=== PATIENT | male | born 1970 | race Caucasian/White ===

== ENCOUNTER 2021-06-13 16:14 | Inpatient (IN) ==
--- NOTE | 2021-06-13 16:46 | Emergency Department Note ---
Impression & Plan Chest pain ADMIT ED Provider Note HPI: The patient is a 50-year-old male with history of hyperlipidemia, presents the emergency department the chief complaint of transient episodes of chest discomfort. Patient's at the bedside is assisting with history, she states that the patient has had episodes of chest discomfort for some time now, this has been attributed to panic attacks secondary to his history of PTSD. Patient did recently have a stress test within the past several weeks through [employer] that she tells me was abnormal, patient is being arranged for an outpatient/diagnostic cardiac catheterization which is to happen on June 22 however he had another episode of chest pain today and was therefore advised by his outpatient providers to come to the emergency room for further evaluation. On arrival here to the ED the patient's EKG does not show any evidence of an ST elevation FL, he is otherwise hemodynamically stable on my initial assessment, he is in no acute distress and states that his episode of chest pain is now resolved. ROS: -Cardio: Chest pain *10 point review systems was conducted and is otherwise negative unless stated above *Outpatient medications and allergy history reviewed PE: General: Alert, NAD HEENT: Normocephalic, atraumatic Eyes: Extraocular eye movement is intact, no scleral erythema Pulmonary: Clear to auscultation bilaterally, no wheezing Cardio: Regular rate and rhythm GI: Abdomen is soft, nontender : No suprapubic tenderness MSK: No evidence of trauma or malformation of the extremities, no edema Skin: No evidence of rash Neuro: Alert, no focal deficits Psychiatric: Cooperative monitor technician: - An order was placed for continuous cardiac monitoring - Patient was noted to be in sinus rhythm with rate of 96 EKG: Rate: 90 Rhythm: Sinus rhythm Intervals: Within normal limits ST changes: No ST elevation Time: 1621 Medical Decision Making: Patient presented to the emergency department with a chief complaint of transient episode of chest discomfort, this is in the setting of a recently abnormal stress test that was performed through the [employer] acc ording to the patient's at the bedside. He is to have a diagnostic catheterization that was scheduled for June 22. On arrival here to the ED the patient states he is chest pain-free, IV was established, lab work obtained, patient was placed on the manager cardiac. Lab work shows a normal high-sensitivity troponin, chest x-ray does not show any evidence of any acute disease. EKG was reviewed by myself, I do not see any evidence of any acute ischemic changes. I was able to review the records from the patient's stress test that was performed on June 04, 2021 at [facility], there is mention that there was abnormal pharmacologic stress test demonstrating a small area of left circumflex territory ischemia. Given this, and his episode of chest pain today, I do think the patient should be admitted he was given aspirin prior to admission[facility] and the patient was admitted in stable condition. Diagnosis: 1. Chest pain, transient 2. Recent abnormal pharmacologic stress testing Disposition: Admission Keanu Andersen DO Emergency Medicine Past Med/Surg History Social History Smoking Status: Never smoker Feels Safe at Home: Yes Allergies Allergies Allergy/AdvReac Type Severity Reaction Status Date / Time No Known Allergies Allergy Verified 06/13/21 17:22 Home Meds Home Medications Medication Instructions Recorded Confirmed aspirin 81 mg tablet,delayed 81 mg PO DAILY 06/13/21 06/13/21 release cholecalciferol (vitamin D3) 25 25 mcg PO DAILY 06/13/21 06/13/21 mcg (1,000 unit) capsule (Vitamin D3) cyclobenzaprine 10 mg tablet 10 mg PO TID PRN 06/13/21 06/13/21 ibuprofen 200 mg tablet 400 - 800 mg PO DIRECTED PRN 06/13/21 06/13/21 multivitamin 1 tab PO DAILY 06/13/21 06/13/21 rosuvastatin 20 mg tablet 20 mg PO DAILY 06/13/21 06/13/21 Results & Data (ED) Vital Signs Vital Signs - 24 hr 06/13/21 16:14 06/13/21 16:16 Temperature 36.6 C Temperature Source Skin Pulse Rate 89 Pulse Rate [Apical] 88 Respiratory Rate 17 18 Blood Pressure 131/86 Blood Pressure [Right Arm] 132/84 Blood Pressure Mean 101 Blood Pressure Mean [Right Arm] 100 Pulse Oximetry 98 96 Oxygen Delivery Method Room Air Sepsis Recent Fever Within 48 Hours No Sepsis New/Unexplained Change in Mental Status No Sepsis Action Taken by Nursing No Action Required Laboratory Data Result diagrams: 06/13/21 16:29 06/13/21 16:29 Lab Results 06/13/21 06/13/21 Range/Units 16:29 16:29 WBC 8.10 (4.8-10.8) K/uL RBC 4.49 L (4.7-6.1) M/uL Hgb 14.8 (14.0-18.0) g/dL Hct 42.7 (42-52) % MCV 95.1 (80-100) fL MCH 33.0 (25-34) pg MCHC 34.7 (32-36) g/dL RDW Std Deviation 42.4 (36.4-46.3) fL RDW Coeff of Alexis 12.3 (11.5-14.5) % Plt Count 305 (130-400) K/uL MPV 9.3 (7.4-10.4) fL Immature Gran % (Auto) 0.2 % Neut % (Auto) 59.7 % Lymph % (Auto) 28.5 % [place] % (Auto) 8.6 % Eos % (Auto) 2.5 % Baso % (Auto) 0.5 % Neut # (Auto) 4.83 (1.4-6.5) K/uL Lymph # (Auto) 2.31 (1.2-3.4) K/uL [place] # (Auto) 0.70 H (0.11-0.59) K/uL Eos # (Auto) 0.20 (0-0.5) K/uL Baso # (Auto) 0.04 (0-0.2) K/uL Immature Gran # (Auto) 0.02 (0.00-0.02) K/uL Sodium 137 (136-145) mmol/L Potassium 4.1 (3.5-5.1) mmol/L Chloride 105 (98-107) mmol/L Carbon Dioxide 24 (21-32) mmol/L Anion Gap 8 (3-11) BUN 19 (6-23) mg/dl Creatinine 1.02 (0.6-1.4) mg/dl Est Cr Clr Drug Dosing 119.8 ml/min Est GFR ( Amer) 98.9 ml/min Est GFR (Non-Af Amer) 85.3 ml/min BUN/Creatinine Ratio 18.6 (10-20) Glucose 81 (70-99(Fasting)) mg/dl Calcium 9.3 (8.5-10.1) mg/dl Total Bilirubin 0.7 (0.2-1.0) mg/dl AST 17 (13-39) U/L ALT 21 (7-52) U/L Alkaline Phosphatase 70 (34-104) U/L Troponin I High Sens 6.1 (0-20) pg/ml Total Protein 7.5 (6.0-8.3) gm/dl Albumin 4.3 (3.4-5.0) gm/dl Globulin 3.2 (2.5-4.0) gm/dl Albumin/Globulin Ratio 1.3 (0.9-2) Lipase 24 (11-82) U/L Administered Medications Discontinued Medications Aspirin (Aspirin Chew 324 Mg) 324 mg PO NOW STA Stop: 06/13/21 17:59 Last Admin: 06/13/21 18:05 Dose: 243 mg Documented by: [id number] Imaging Data Radiologist's Impression: Chest X-Ray 06/13/21 16:37 SINGLE VIEW CHEST CLINICAL HISTORY: Atypical chest pain. FINDINGS: An AP, portable, upright chest radiograph is obtained. No prior studies are available for comparison at the time of dictation. The examination is degraded by portable technique and apical lordotic positioning. The heart is enlarged. The pulmonary vasculature is noncongested. Scarring/atelectasis is noted at the lung bases. The lungs and pleural spaces are otherwise clear. No pneumothorax is seen. The bony thorax is grossly intact. IMPRESSION: Mild cardiomegaly with no acute cardiopulmonary abnormality. ACT 112: Negative or not required by law. Electronically signed by: Nash Simpson M.D. 06/13/2021 5:42 PM Discharge Plan Visit Data Chief Complaint: Chest Pain Stated Complaint: CHEST PAINS, SENT OVER BY ED Provider: Keanu Andersen Discharge Problem: Chest pain Forms Stand Alone Forms: My [facility] Prescriptions Prescriptions: No Action multivitamin Tablet 1 tab PO DAILY RF: 0 cyclobenzaprine 10 mg Tablet 10 mg PO TID PRN (Reason: MUSCLE SPASMS) RF: 0 aspirin 81 mg Tablet,Delayed Release (Dr/Ec) 81 mg PO DAILY RF: 0 ibuprofen 200 mg Tablet 400 - 800 mg PO DIRECTED PRN (Reason: Pain) RF: 0 cholecalciferol (vitamin D3) [Vitamin D3] 25 mcg (1,000 unit) Capsule 25 mcg PO DAILY RF: 0 rosuvastatin 20 mg Tablet 20 mg PO DAILY RF: 0 Referrals Referrals: Kervin Huggins MD [Primary Care Provider] - Discharge Problem: Chest pain Qualifiers: Chest pain type: unspecified Qualified Code(s): R07.9 - Chest pain, unspecified
[2021-06-13 16:58] LABS: Basophils # (auto) 0.04 K/uL (0-0.2); Basophils % (auto) 0.5 %; Eosinophils % (auto) 2.5 %; Hematocrit (blood only) 42.7 % (42-52); Hemoglobin 14.8 g/dL (14.0-18.0); Immature Granulocytes # (auto) 0.02 K/uL (0.00-0.02); Immature Granulocytes % (auto) 0.2 %; Lymphocytes # (auto) 2.31 K/uL (1.2-3.4); Lymphocytes % (auto) 28.5 %; Mean Corpuscular Hgb Conc 34.7 g/dL (32-36); Mean Corpuscular Volume 95.1 fL (80-100); Mean Platelet Volume 9.3 fL (7.4-10.4); Monocytes % (auto) 8.6 %; Neutrophils # (auto) 4.83 K/uL (1.4-6.5); Neutrophils % (auto) 59.7 %; Platelet Count 305 K/uL (130-400); RDW Coefficient of Variation 12.3 % (11.5-14.5); RDW Standard Deviation 42.4 fL (36.4-46.3); Red Blood Count 4.49 M/uL (4.7-6.1)
[2021-06-13 17:16] LABS: Albumin Globulin Ratio 1.3 (0.9-2); Albumin Level 4.3 gm/dl (3.4-5.0); BUN Creatinine Ratio 18.6 (10-20); Bilirubin,Total 0.7 mg/dl (0.2-1.0); Calcium 9.3 mg/dl (8.5-10.1); Creatinine Clr Calc Pharmacy 119.8 ml/min; Est GFR (African American) 98.9 ml/min; Est GFR (Non-African American) 85.3 ml/min; Globulin 3.2 gm/dl (2.5-4.0); Potassium 4.1 mmol/L (3.5-5.1); Total Protein 7.5 gm/dl (6.0-8.3)
[2021-06-13 17:21] LABS: Troponin I High Sensitivity 6.1 pg/ml (0-20)
--- NOTE | 2021-06-13 17:43 | XRay Report ---
SINGLE VIEW CHEST CLINICAL HISTORY: Atypical chest pain. FINDINGS: An AP, portable, upright chest radiograph is obtained. No prior studies are available for c omparison at the time of dictation. The examination is degraded by portable technique and apical lord otic positioning. The heart is enlarged. The pulmonary vasculature is noncongested. Scarring/atelecta sis is noted at the lung bases. The lungs and pleural spaces are otherwise clear. No pneumothorax is seen. The bony thorax is grossly intact. IMPRESSION: Mild cardiomegaly with no acute cardiopulmonary abnormality. ACT 112: Negative or not required by law. Electronically signed by: Nash Simpson M.D. 06/13/2021 5:42 PM
[2021-06-13] MEDS ORDERED: ASPIRIN CHEW 324 MG PO STA (17:58)
[2021-06-13] MEDS ORDERED: CYCLOBENZAPRINE HCL 10 MG TAB PO PRN (18:51)
--- NOTE | 2021-06-13 19:06 | History & Physical Report ---
Date of Service June 13, 2021 Assessment & Plan (1) Chest pain: Plan: #. Chest pain Patient presented with chest pain at rest associated with diaphoresis/nausea today History of intermittent chest pain throughout this last year, history of PA at age 40 while in [place] Recent abnormal outpatient stress test, planned for heart cath on 22 June Chest pain-free at bedside exam, first set of troponin negative, trend troponin Admitting EKG with no acute ST-T changes. N.p.o. midnight, cardiology consult for possible procedure tomorrow. #. Alcohol abuse Patient drinks 6-8 beers daily, watch out for alcohol withdrawal, will hold on ordering AWSS protocol as of now No h/o withdrawal or seizures in the past per patient. DVT prophylaxis: Subcu heparin Full code Patient's Carrie [[phone]] would like an update and call prior to him having any cardiac procedure tomorrow. History of Present Illness Chief Complaint: Chest pain Primary Care Provider: Kervin Huggins MD 50-year-old male with PMH of PA at age 40 [per pt, while in [place]], TBI, PTSD, lumbar disc disease and with significant cardiac family history presented to our ED with complaint of chest pain at around 2:30 PM today while sitting at desk and typing, pressure-like sensation, 7-8/10 in intensity, radiating to left arm and neck, associated with diaphoresis and palpitation. Patient received full dose aspirin in the ED. At bedside exam patient is chest pain-free. Admitting EKG with no acute ST or T elevation, first troponin set was negative. Per patient, he has been having on and off chest pain since last 1 year which was initially thought to be due to his history of PTSD but [facility], his blood pressure went up very high and he had chest pain which prompted for stress test which was done on 06/04/2021 at [facility] and came back abnormal and hence was scheduled for cardiac cath on 22 June. But since he had chest pain today, he reached out to his PCP and was directed to the emergency for inpatient cardiac cath and further cardiology ev aluation. Patient denies any headache/dizziness/belly pain/acute changes in bowel or bladder habits/cough/sore throat/other review of symptoms. Per patient, no personal history of blood clot or family history of blood clot. Family history of breast cancer in mother and 2 PA in father in age 30s. Per patient, patient quit smoking 13 years ago, drinks 6-8 beers daily, does not use any recreational drugs. Full code Allergies Allergy/AdvReac Type Severity Reaction Status Date / Time No Known Allergies Allergy Verified 06/13/21 17:22 Home Medications Medication Instructions Recorded Confirmed Type aspirin 81 mg tablet,delayed 81 mg PO DAILY 06/13/21 06/13/21 History release cholecalciferol (vitamin D3) 25 25 mcg PO DAILY 06/13/21 06/13/21 History mcg (1,000 unit) capsule (Vitamin D3) cyclobenzaprine 10 mg tablet 10 mg PO TID PRN 06/13/21 06/13/21 History ibuprofen 200 mg tablet 400 - 800 mg PO DIRECTED PRN 06/13/21 06/13/21 History multivitamin 1 tab PO DAILY 06/13/21 06/13/21 History rosuvastatin 20 mg tablet 20 mg PO DAILY 06/13/21 06/13/21 History Past Med/Surg History Social History Smoking Status: Never smoker Feels Safe at Home: Yes Review of Systems Review of Systems: Negative otherwise mentioned in the H&P. Physical Exam Physical Exam: GENERAL: Alert and oriented x3. NAD, on RA. HEENT: No pallor, no icterus. Pupils equal, round and reactive to light. Oral mucosa moist. NECK: No JVD, no neck masses. HEART: S1 and S2 heard. Regular rate and rhythm. No murmur, no gallop. RESPIRATORY SYSTEM: Normal AP diameter. No accessory muscle use. No wheezing, no crackles. ABDOMEN: Soft, bowel sounds present, nontender, no distention. CENTRAL NERVOUS SYSTEM: No facial droop. Speech is clear. Obeys simple commands. Moves extremities. EXTREMITIES: No edema, no erythema seen. Results & Data Results & Data ([facility]) Vital Signs (Past 12 Hours) Vital Signs Temp Pulse Pulse Resp BP BP Pulse Ox 06/13/21 18:14 77 21 132/81 100 06/13/21 16:16 36.6 C 89 18 131/86 96 06/13/21 16:14 88 17 132/84 98 Code Status & VTE Plan VTE Prophylaxis Plan VTE Prophylaxis will be ordered: Yes (1) Chest pain Chest pain type: unspecified Qualified Code(s): R07.9 - Chest pain, unspecified
[2021-06-13] MEDS: HEPARIN SOD 5,000 UNIT/0.5 ML VIAL SQ SCH (22:10)
[2021-06-14 06:45] LABS: Hematocrit (blood only) 40.4 % (42-52); Hemoglobin 14.1 g/dL (14.0-18.0); Mean Corpuscular Hemoglobin 33.3 pg (25-34); Mean Corpuscular Hgb Conc 34.9 g/dL (32-36); Mean Corpuscular Volume 95.5 fL (80-100); Mean Platelet Volume 9.2 fL (7.4-10.4); Platelet Count 274 K/uL (130-400); RDW Coefficient of Variation 12.3 % (11.5-14.5); RDW Standard Deviation 42.8 fL (36.4-46.3); Red Blood Count 4.23 M/uL (4.7-6.1); White Blood Count 6.15 K/uL (4.8-10.8)
[2021-06-14 07:10] LABS: BUN Creatinine Ratio 18.4 (10-20); Calcium 8.7 mg/dl (8.5-10.1); Creatinine Clr Calc Pharmacy 124.4 ml/min; Est GFR (African American) 103.8 ml/min; Est GFR (Non-African American) 89.5 ml/min; Phosphorus 3.2 mg/dl (2.5-4.9); Potassium 4.1 mmol/L (3.5-5.1)
[2021-06-14] MEDS: ASPIRIN 81 MG ECTAB PO SCH (08:45)
[2021-06-14] MEDS: ROSUVASTATIN CALCIUM 20 MG TAB PO SCH (08:45)
[2021-06-14] MEDS: HEPARIN SOD 5,000 UNIT/0.5 ML VIAL SQ SCH ×2 (08:45→20:36)
--- NOTE | 2021-06-14 12:15 | Electrocardiogram Report ---
Test Reason : Blood Pressure : / mmHG Vent. Rate : 090 BPM Atrial Rate : 090 BPM P-R Int : 160 ms QRS Dur : 090 ms QT Int : 362 ms P-R-T Axes : 023 010 030 degrees QTc Int : 442 ms Sinus rhythm with occasional Premature ventricular complexes Otherwise normal ECG No previous ECGs available Confirmed by Woodrow Wilks ([id number]) on 06/14/2021 12:15:01 PM Referred By: Kervin Huggins Confirmed By:Woodrow Wilks
--- NOTE | 2021-06-14 12:52 | Cardiology Consultation ---
Date of Consultation June 14, 2021 Assessment & Plan (1) Chest pain: (2) Abnormal nuclear stress test: (3) Dyslipidemia: (4) Former tobacco use: 50 male presents with recurrent chest discomfort atypical for angina. Recent Lexiscan nuclear stress test suggesting circumflex territory ischemia. No evidence of acute coronary syndrome on admission. He is scheduled for outpatient cardiac catheterization on June 22. With recurrent/persistent symptoms, recommend left heart catheterization with coronary angiography. Risk, benefits, alternatives to procedure discussed. Patient agreeable to proceed. He will remain n.p.o. at this time. All questions answered to patient's satisfaction. History of Present Illness Reason for Consultation: chest pain, abnormal stress Requesting Physician: Dr. Goodwin Attending Physician: Juanjose Goodwin MD History of Present Illness 50 old patient presented to the emergency department with chest discomfort. Evaluated by primary care 06/13/2021. Complaining of intermittent sharp chest discomfort which occurs both at rest and occasionally with exertion. The discomfort can last several minutes. There is no associated shortness of breath, lightheadedness, or dizziness. Time that discomfort shoots straight through to his back as well as radiates down his left arm. Recently, a Lexiscan nuclear stress test was performed for further evaluation. There is evidence of a small, mild base lateral reversible defect suggestive of ischemia. Pain-free since admission. Cardiac enzymes undetectable. No ischemic ECG changes. Currently resting comfortably. Denies orthopnea, PND, or lower extremity edema. Reports history of "heart attack" while in the in [place]. A cardiac catheterization was not performed. Denies any history of coronary intervention or bypass surgery. Risk factors include dyslipidemia. Reports a family history of coronary does involving his father before age 40, however, his father still living today in his 70s. Allergies Allergy/AdvReac Type Severity Reaction Status Date / Time No Known Allergies Allergy Verified 06/13/21 17:22 Home Medications Medication Instructions Recorded Confirmed Type aspirin 81 mg tablet,delayed 81 mg PO DAILY 06/13/21 06/13/21 History release cholecalciferol (vitamin D3) 25 25 mcg PO DAILY 06/13/21 06/13/21 History mcg (1,000 unit) capsule (Vitamin D3) cyclobenzaprine 10 mg tablet 10 mg PO TID PRN 06/13/21 06/13/21 History ibuprofen 200 mg tablet 400 - 800 mg PO DIRECTED PRN 06/13/21 06/13/21 History multivitamin 1 tab PO DAILY 06/13/21 06/13/21 History rosuvastatin 20 mg tablet 20 mg PO DAILY 06/13/21 06/13/21 History Patient History Social History Smoking Status: Former smoker Second Hand Exposure: No; Do You Dip or Chew Tobacco: No; Hx Alcohol Use: Yes Alcohol type: beer Hx Substance Use: No Preferred Language: Uzbek Communication Ability: Effective Network Support Engineer Required: No Beliefs That Will Affect Care: None Current Living Situation: Significant Other Current Living Situation Comment: Girlfriend and her son Other Information That Helps Us Care for You: No Feels Safe at Home: Yes Safety Concerns: Feels Safe At This Time Assistive Devices: None Review of Systems Review of Systems: All systems reviewed & are unremarkable except as noted in Subjective Physical Exam Constitutional: well developed and well nourished; no acute distress and not ill appearing Respiratory: normal respiratory effort; no respiratory distress, no labored breathing and no retractions Auscultation: lungs clear to auscultation bilaterally; breath sounds present, no crackles, no rales, no rhonchi and no wheezes Cardiovascular: Rate/Rhythm: regular rate and regular rhythm Heart Sounds: normal S1 and normal S2; no murmur Vessels: femoral pulses present and radial pulses present; no JVD and no carotid bruit Extremities: no edema Gastrointestinal (Abdomen): Inspection/Auscultation: abdomen normal to inspection and normal bowel sounds; abdomen not distended Percussion/Palpation: abdomen soft; abdomen nontender, no guarding and abdomen not rigid Neurologic: CN's II-XI intact bilaterally and moves all extremities; no focal motor deficits Motor/Sensory: no tremor Psychiatric: A+Ox3, euthymic affect Results & Data ([facility]) Vital Signs (Past 12 Hours) Vital Signs Temp Pulse Pulse Resp BP Pulse Ox 06/14/21 10:53 37.0 C 67 18 130/84 94 06/14/21 07:00 36.4 C L 87 61 18 144/81 H 94 06/14/21 03:30 36.5 C 70 20 116/63 96 06/14/21 01:00 87 (1) Chest pain Chest pain type: unspecified Qualified Code(s): R07.9 - Chest pain, unspecified
--- NOTE | 2021-06-14 14:24 | Electrocardiogram Report ---
Test Reason : Blood Pressure : / mmHG Vent. Rate : 070 BPM Atrial Rate : 070 BPM P-R Int : 202 ms QRS Dur : 092 ms QT Int : 422 ms P-R-T Axes : -06 014 015 degrees QTc Int : 455 ms Normal sinus rhythm Normal ECG When compared with ECG of 13-JUN-2021 16:21, (unconfirmed) Premature ventricular complexes are no longer Present Confirmed by Woodrow Wilks ([id number]) on 06/14/2021 2:24:24 PM Referred By: Kervin Huggins Confirmed By:Woodrow Wilks
--- NOTE | 2021-06-14 15:04 | Pre Anesthesia Assessment ---
Date of Service June 14, 2021 Pre Sedation Assessment Vital Signs Temp Pulse Pulse Pulse Resp BP BP 06/14/21 10:53 37.0 C 67 18 130/84 06/14/21 07:00 36.4 C L 87 61 18 144/81 H 06/14/21 03:30 36.5 C 70 20 116/63 06/14/21 01:00 87 06/13/21 22:22 36.6 C 89 20 138/87 06/13/21 22:16 85 06/13/21 22:11 36.6 C 89 20 138/87 06/13/21 18:14 77 21 132/81 06/13/21 16:16 36.6 C 89 18 131/86 06/13/21 16:14 88 17 132/84 Pulse Ox 06/14/21 10:53 94 06/14/21 07:00 94 06/14/21 03:30 96 06/14/21 01:00 06/13/21 22:22 94 06/13/21 22:16 06/13/21 22:11 94 06/13/21 18:14 100 06/13/21 16:16 96 06/13/21 16:14 98 Cardiovascular RRR, no murmur, no edema Respiratory normal respiratory effort, lungs clear to auscultation Pre-Sedation Airway Assessment Smoking Status: Former smoker Mallampati Class: II ASA: ASA3 NPO Status Date of Last Intake of Fluids: 06/13/21 Date of Last Intake of Solid Food: 06/13/21 Procedure Planning Contraindications for Sedation: none Current Medications Reviewed: Yes Notes The planned sedation has been discussed with the patient. Informed Consent was obtained. I have identified the patient, determined the appropriateness of sedation and have assessed the patient immediately prior to the procedure. All medicine(s) and interventions are by my order.
[2021-06-14] MEDS ORDERED: niCARdipine HCL INJ 2.5 MG/ML 10 ML AMP ONE (15:12)
[2021-06-14] MEDS ORDERED: MIDAZOLAM HCL 1 MG/ML 2ML VIAL ONE (15:12)
[2021-06-14] MEDS ORDERED: fentaNYL citrate 100 MCG/2 ML VIAL ONE (15:12)
[2021-06-14] MEDS ORDERED: HEPARIN (PORCINE) 1000 UNIT/ML 10 ML (CATH LAB USE ONLY) ONE (15:12)
[2021-06-14] MEDS ORDERED: NITROGLYCERIN/D5W 100MCG/ML 20ML SYR ONE (15:13)
[2021-06-14] MEDS ORDERED: LIDOCAINE 1% LOCAL 20 ML VIAL ONE (15:13)
--- NOTE | 2021-06-14 17:17 | Post Anesthesia Assessment ---
Date of Service June 14, 2021 Post Sedation Assessment Vital Signs Temp Pulse Pulse Pulse Resp BP Pulse Ox 06/14/21 10:53 37.0 C 67 18 130/84 94 06/14/21 07:00 36.4 C L 87 61 18 144/81 H 94 06/14/21 03:30 36.5 C 70 20 116/63 96 06/14/21 01:00 87 06/13/21 22:22 36.6 C 89 20 138/87 94 06/13/21 22:16 85 06/13/21 22:11 36.6 C 89 20 138/87 94 06/13/21 18:14 77 21 132/81 100 Recovery Score Activity: Moves 4 extremities Respiration: Deep Breath/Cough Circulation: +/-20% PreAnes Value Consciousness: Fully Awake Oxygen Saturation: > 92% On Room Air Discharge Sedation Level of Care: Phase I Post Sedation Plan On clinical assessment, the patient appears to have tolerated the sedation without complications. Patient is recovering as anticipated. Patient will continue to be monitored by nursing and may be discharged when sedation discharge criteria are met per below protocol. Upon Completions of procedure up to 15 minutes continue every 5 minute vital signs and the P.A.R. score; then discharge to a Phase I or Fast Track to Phase II per the following guidelines: * Discharge Patient to appropriate Phase II area if PAR is 8 or greater or re turn to pre- procedure baseline. The post - procedure orders will be as directed. * If PAR score is less than 8 or not return to pre-procedure baseline then patient will follow Phase I monitoring till PAR is reached for Phase II. The Phase I may be done in procedure room or may call to secure a Phase I area. * If naloxone or flumazenil are used for reversal, hold in Phase I for continued monitoring from when last reversal dose was given for a minimum of 60 minutes or longer pending the nurse and/or physician discretion of patient condition before discharge to Phase II. Please call the Sedation Physician to re-evaluate and complete post-note for discharge to Phase II area. Do NOT discharge from procedure sedation or Phase 1 until post- sedation evaluation note is complete by procedure /sedation MD Sedation Discharge Instructions to be given to the patient at discharge to home.
--- NOTE | 2021-06-14 17:20 | Cardiac Catheterization ---
Cardiac Cath Procedure Full Procedure Date June 14, 2021 Pre-Procedure Diagnosis Pre-Procedure Diagnosis: Positive Stress Test AUC Score AUC Score: 7 Post-Procedure Diagnosis Post-Procedure Diagnosis: Normal Coronary Arteries (Right coronary artery not visualized) Procedure(s) Performed Procedure(s) Performed: Left Heart Cath, LV Angiography and Aortography Coroner Willy Davila DO Kiln Hand(s) Bobby RTR Estimated Blood Loss Estimated Blood Loss: 10cc Medication(s) Medication(s): Fentanyl, Heparin, Lidocaine 1%, Nicardipine, Nitroglycerin and Versed Summary of Findings Normal left-sided coronary anatomy. The right coronary artery was not visualized. VIDALES and LEBANESE projection aortography did not reveal the origin of the right coronary artery. Hemodynamics Rest Ao:: 105/78/89 Final Ao: 121/77/97 LV: 118/3/10 Recommendations Recommendations: Medical Therapy and/or Counseling and Management Recommendatons (Cardiac CT for evaluation of the right coronary artery.) Specimens Specimens: None Radiation Exposure (mGy) 2891 Contrast (mls) 200cc Fluids (cc crystalloids) Fluids (cc crystalloids): 135 Nss Drains Drains: N/A Anesthesia Moderate sedation. Start 1553. [id number]. Sedation monitor: Paco GARDNER Procedural Complication(s) None I attest to the content of the Intraoperative Record and any orders documented therein. Any exceptions are noted below. ACC Data: Landscape Specialist Cardiac Status Clinical evaluation leading to the procedure Abnormal Lexiscan nuclear stress test suggesting lateral ischemia. CAD Presenation: Positive Stress Test Coronary Anatomy Dominant: Right (Likely right dominant, however, the right coronary artery is not visualized.) Left Main (% Stenosis): Normal LAD (% Stenosis): Normal (Type II vessel which reaches the left ventricular apex.) D1 (% Stenosis): Normal D2 (% Stenosis): Normal D3 (% Stenosis): Normal Circumflex (% Stenosis): Normal OM1 (% Stenosis): Normal L PL1 (% Stenosis): Normal Diagnostic Physicians Name: Willy Davila DO Closure Device Percutaneous Entry Location: Radial Closure Device: Radial Band Recommendations: Medical Therapy and/or Counseling and Management Recommendatons (Cardiac CT for evaluation of the right coronary artery.) Intraprocedure Events Significant Disection: No Perforation: No
--- NOTE | 2021-06-14 17:57 | Hospitalist Progress Note ---
Date of Service June 14, 2021 Assessment & Plan (1) Chest pain: Plan: #. Chest pain Patient presented with chest pain at rest associated with diaphoresis/nausea history of VT at age 40 while in [place] intermitted chest pains. Recent abnormal outpatient stress test, planned for heart cath on 22 June Admitting EKG with no acute ST-T changes. troponin negative s/p cardiac cath today and was unremarkable plan for CT chest by cardiology to evaluate right heart. Alcohol abuse Patient drinks 6-8 beers daily, No h/o withdrawal or seizures in the past per patient. Will monitor foir any withdrwal place on iv ativan prn DVT prophylaxis: Subcu heparin Full code Possible d/c in am Patient's Carrie [[phone]] would like an update Admission and Anticipated Discharge Date Admission Date: June 13, 2021 Subjective s/p cardiac cath resting comfortably denies any chest pain or sob no nausea no cough no abdominal pain afebrile Review of Systems Review of Systems: All systems reviewed & are unremarkable except as noted in Subjective Physical Exam Constitutional: WD/WN, vitals as above Neck: trachea midline, no thyromegaly Respiratory: normal respiratory effort, lungs clear to auscultation Cardiovascular: RRR, no murmur, no edema Gastrointestinal (Abdomen): normal bowel sounds, soft, nontender, no hepatosplenomegaly Neurologic: alert nd orienetd, no facial palsy, no dysarthria, moves extremities Psychiatric: A+Ox3, euthymic affect Results & Data Results & Data ([facility]) Vital Signs (Past 12 Hours) Vital Signs Temp Pulse Pulse Pulse Resp BP BP 06/14/21 17:41 36.4 C L 76 16 138/88 06/14/21 17:25 36.7 C 59 L 13 129/79 06/14/21 10:53 37.0 C 67 18 130/84 06/14/21 07:00 36.4 C L 87 61 18 144/81 H Pulse Ox 06/14/21 17:41 96 06/14/21 17:25 96 06/14/21 10:53 94 06/14/21 07:00 94 (1) Chest pain Chest pain type: unspecified Qualified Code(s): R07.9 - Chest pain, unspecified
[2021-06-15] MEDS: ASPIRIN 81 MG ECTAB PO SCH (07:27)
[2021-06-15] MEDS: ROSUVASTATIN CALCIUM 20 MG TAB PO SCH (07:27)
[2021-06-15] MEDS: HEPARIN SOD 5,000 UNIT/0.5 ML VIAL SQ SCH (07:27)
[2021-06-15] MEDS ORDERED: MULTIVITAMIN TAB PO SCH (09:00)
[2021-06-15] MEDS ORDERED: CHOLECALCIFEROL 1,000 UNITS 25 MCG TAB PO SCH (09:00)
--- NOTE | 2021-06-15 11:02 | Discharge Summary ---
Date of Service June 15, 2021 Admission HPI Per Admitting Provider 50-year-old male with PMH of [facility] at age 40 [per pt, while in [place]], TBI, PTSD, lumbar disc disease and with significant cardiac family history presented to our ED with complaint of chest pain at around 2:30 PM today while sitting at desk and typing, pressure-like sensation, 7-8/10 in intensity, radiating to left arm and neck, associated with diaphoresis and palpitation. Patient received full dose aspirin in the ED. At bedside exam patient is chest pain-free. Admitting EKG with no acute ST or T elevation, first troponin set was negative. Per patient, he has been having on and off chest pain since last 1 year which was initially thought to be due to his history of PTSD but during his physical with VA in March this year, his blood pressure went up very high and he had chest pain which prompted for stress test which was done on 06/04/2021 at [place] and came back abnormal and hence was scheduled for cardiac cath on 22 June. But since he had chest pain today, he reached out to his PCP and was directed to the emergency for inpatient cardiac cath and further cardiology evaluation. Patient denies any headache/dizziness/belly pain/acute changes in bowel or bladder habits/cough/sore throat/other review of symptoms. Per patient, no personal history of blood clot or family history of blood clot. Family history of breast cancer in mother and 2 VA in father in age 30s. Per patient, patient quit smoking 13 years ago, drinks 6-8 beers daily, does not use any recreational drugs. Full code Admission Exam Per Admitting Provider GENERAL: Alert and oriented x3. NAD, on RA. HEENT: No pallor, no icterus. Pupils equal, round and reactive to light. Oral mucosa moist. NECK: No JVD, no neck masses. HEART: S1 and S2 heard. Regular rate and rhythm. No murmur, no gallop. RESPIRATORY SYSTEM: Normal AP diameter. No accessory muscle use. No wheezing, no crackles. ABDOMEN: Soft, bowel sounds present, nontender, no distention. CENTRAL NERVOUS SYSTEM: No facial droop. Speech is clear. Obeys simple commands. Moves extremities. EXTREMITIES: No edema, no erythema seen. Principal Diagnosis Chest pain Discharge Exam Constitutional + well hydrated; no acute distress Eyes PERRL, conjunctivae normal, anicteric sclerae ENMT external ear and nose normal, oropharynx normal Respiratory normal respiratory effort, lungs clear to auscultation Cardiovascular RRR, no murmur, no edema Gastrointestinal (Abdomen) normal bowel sounds, soft, nontender, no hepatosplenomegaly Musculoskeletal no cyanosis or clubbing, extremities motor strength 5/5 Neurologic PERRL, EOMI, accommodation nl, no face palsy, no dysarthria Psychiatric A+Ox3, euthymic affect Discharge Data Allergies Allergy/AdvReac Type Severity Reaction Status Date / Time No Known Allergies Allergy Verified 06/13/21 17:22 Consultations 06/13/21 18:23 ED Decision to Admit Stat 06/13/21 18:50 Consult Cardiology Routine Procedures Performed Operation Date: 06/14/21 14:30 Actual Procedures p Cath, Left with Cors and Vent - DO chad Romo Cineradiography w/Routine Exam - DO chad Romo Injection / Imaging Aorta - DO chad Romo Intro of Catheter, Aorta - Willy Davila DO Dominant: Right (Likely right dominant, however, the right coronary artery is not visualized.) Left Main (% Stenosis): Normal LAD (% Stenosis): Normal (Type II vessel which reaches the left ventricular apex.) D1 (% Stenosis): Normal D2 (% Stenosis): Normal D3 (% Stenosis): Normal Circumflex (% Stenosis): Normal OM1 (% Stenosis): Normal L PL1 (% Stenosis): Normal Ordered Studies 06/14/21 15:38 CL Cath Imgs for PACS use only Routine Hospital Course (1) Chest pain: #. Chest pain Patient presented with chest pain at rest associated with diaphoresis/nausea t History of intermittent chest pain throughout this last year, history of VA at age 40 while in [place] Recent abnormal outpatient stress test. Was planned for heart cath on 22 June Admitting EKG with no acute ST-T changes. Troponin trend was negative Had [facility] which was normal except that right coronary artery was not visualized Discussed with Suction Operator Dr Davila. He plans to schedule cardiac CT outpatient for further evaluation Continue home aspirin and rosuvastatin #. Alcohol abuse Counselled on need to quit alcohol use Total Time Total Time Spent Total Time Spent (In Minutes): 35 Total Time Includes: Examination of the Patient, Discharge Planning, Medication Reconciliation and Communication With Other Providers Discharge Plan Discharge Items Patient Disposition: Home - Self-Care Reason For Visit: CHEST PAIN Discharge Diagnosis: Chest pain Activity: Resume your previous activity Non-emergency contact: Primary Care Provider and Suction Operator Call non-emergency contact if: you have any medication questions Follow-up/Referrals: Kervin Huggins MD [Primary Care Provider] - (Date & Time 06/19/2021 10:20 AM Provider Keanu Reyes MD [facility] ) Diet: Heart Healthy Addtl Attending Provider Instructions: Mr Hernandez. You came to the hospital for chest pain. You were evaluated by Suction Operator and had a left heart catheterization. Your chest pain is currently resolved. Please ensure follow up with Cardiology who will arrange cardiac CT outpatient. It was a pleasure taking care of you. Pending Studies at Discharge: No Stand-Alone Forms: My [email or web address], Smoking Cessation Medications and DC Order Prescriptions: Continued multivitamin Tablet 1 tab PO DAILY RF: 0 cyclobenzaprine 10 mg Tablet 10 mg PO TID PRN (Reason: MUSCLE SPASMS) RF: 0 aspirin 81 mg Tablet,Delayed Release (Dr/Ec) 81 mg PO DAILY RF: 0 cholecalciferol (vitamin D3) [Vitamin D3] 25 mcg (1,000 unit) Capsule 25 mcg PO DAILY RF: 0 rosuvastatin 20 mg Tablet 20 mg PO DAILY RF: 0 Discontinued ibuprofen 200 mg Tablet 400 - 800 mg PO DIRECTED PRN (Reason: Pain) RF: 0 Discharge Orders: Discharge Order (Routine); Ordered 06/15/21 Ordered By: Dalila Solis Admission Data Admit Date/Time: 06/13/21 18:47 Attending Provider: Dalila Solis I. Admit Provider: Radha Brown Primary Care Provider: Kervin Huggins Other Providers: [facility] ; Radha Brown ; Willy Davila ; Juanjose Goodwin Other Interventions: Discharge Summary Assessment (RN) Last Done: 06/15/21 11:20
== END 2021-06-15 12:00 | disposition home or self-care (01) | DRG 287 ==
LOC: ED 16:14 → SUATTDRO 18:47 → 2N 18:47 → 2S 06-14 17:34
PROC: CLB.IPA (2021-06-14 14:30)
DX: Z79.82 Long term (current) use of aspirin; I20.0 Unstable angina; Z86.73 Personal history of transient ischemic attack (TIA), and cerebral infarction without residual deficits; F10.10 Alcohol abuse, uncomplicated; Z87.891 Personal history of nicotine dependence; F43.10 Post-traumatic stress disorder, unspecified; I25.2 Old myocardial infarction; E78.5 Hyperlipidemia, unspecified